=== PATIENT | female | born 1950 | race Caucasian/White ===

== ENCOUNTER → 2016-06-28 | Outpatient (CLI) | payer OTHER ==
[~2016-06-28] MED LIST: ADVAIR 250/501 DISK IH; AMBIEN CR12.5 MG PO; AMLODIPINE BESYL5 MG PO; ANTIVERT25 MG PO; ASPIRIN E.C.81 M1 PO; ASPIRIN E.C.81 MG PO; Aspirin E.C. PO; BACTRIM,SEPT1 TABLET PO; BENICAR20 MG PO; BUTALB-APAP-CA1 EACH PO; CARAFATE1 GM PO; CHANTIX0.5 MG PO; CHOLESTYRAMINE P4 GM PO; CLONAZEPAM0.5 MG PO; CLONAZEPAM1 MG PO; CLOPIDOGREL75 MG PO; COMPAZINE5 MG PO; COUMADIN1 MG PO; COZAAR50 MG PO; Carafate PO; Colace PO; DILAUDID4 MG PO; DUONEB 2.5-0.5 M3 ML AEROSOL; DUONEB 2.5-0.5 M3 ML IH; ENDOCET 5-3251 EACH PO; EXTRA STRENGTH500 M1 PO; FERROUS SULFAT325 MG PO; FLONASE16 G1 BOTH NARES; FLORA-Q CAPSUL1 EACH PO; Flagyl PO; HYDROCHLOROTHIA25 MG PO; HYDROCODON-ACE1 EAC7 PO; HYDROMORPHONE HC2 MG PO; HYDROMORPHONE HC4 MG PO; Habitrol,Nicoderm CQ TD; IBUPROFEN200 M1 PO; IMITREX100 MG PO; IMODIUM MS REL1 EACH PO; IRON325 M1 PO; K-DUR10 ME2 PO; KLONOPIN1 MG PO; LEVAQUIN500 MG PO; LIDOCAINE700 MG TD; LIPITOR20 MG PO; LO-DOSE ASPIRIN81 M1 PO; LOSARTAN POTASS50 MG PO; MECLIZINE HCL25 M3 PO; MECLIZINE HCL25 MG PO; METOCLOPRAMIDE10 MG PO; NEURONTIN300 MG PO; NEURONTIN400 M1 PO; NITROFURANTOIN100 M3 PO; NORCO 7.5/321 TABLET PO; Neurontin PO; PANTOPRAZOLE SO40 MG PO; PLAVIX75 MG PO; POLYETHYLENE GL17 GM PO; PROTONIX40 MG PO; PROVENTIL,200 INHALA IH; Protonix PO; REGLAN10 MG PO; Reglan PO; SEROQUEL XR150 MG PO; SEROQUEL50 MG PO; Symbicort 160-4.5 mc IH; THERAGRAN1 TABLET PO; TOPIRAMATE25 MG PO; TRAMADOL HCL50 MG PO; TREXIMET 85-501 EACH PO; TYLENOL REGULA325 MG PO; Tramadol HCl PO; Tylenol Regular Stre PO; VIBERZI100 MG PO; VICODIN,LORT1 TABLET PO; VIIBRYD40 MG PO; VITAMIN D5000 UNIT PO; Vicodin,Norco 5/325 PO; Vitamin B Complex PO; Vitamin D PO; XANAX0.5 MG PO; Xanax PO; ZESTRIL,PRINIVI20 MG PO; ZITHROMAX Z-PA250 MG PO; ZOFRAN ODT4 MG PO; ZOFRAN8 MG PO; ZOLOFT50 MG PO; ZOLPIDEM TARTRA10 MG PO; Zocor PO
== END | disposition home or self-care (01) ==
LOC: EKG 14:00
DX: Z01.810 Encounter for preprocedural cardiovascular examination (principal); I27.0 Primary pulmonary hypertension
CPT/HCPCS: 93306

== ENCOUNTER 2016-07-28 13:19 | Emergency (ER) | payer OTHER ==
[2016-07-28] VITALS (7 sets, daily range): BP systolic 147–171; BP diastolic 78–109
[~2016-07-28] VITALS: Ht 160 cm; Wt 76.0 kg
[2016-07-28 14:14] LABS: EOSINOPHIL (%) 2.6 % (0-5); EOSINOPHIL COUNT 0.1 K/uL (0-0.3); IMMATURE GRANULOCYTE (%) 0.2 % (0.0-0.7); INSTRUMENT ABS NEUTROPHIL CT 3.2 K/uL; LYMPHOCYTE COUNT 1.3 K/uL (1.0-2.8); MCH 24.7 PG (29.0-34.0); MCHC 29.2 G/DL (30.0-36.0); MCV 84.8 FL (83-99); MEAN PLAT.VOLUME 9.2 uM^3 (9.5-12.4); MONOCYTE COUNT 0.4 K/uL (0-0.8); NEUTROPHIL (%) 64.3 % (45-76); NEUTROPHIL COUNT 3.2 K/uL (1.8-6.4); PLATELET COUNT 357 K/uL (156-360); RBC DIS.WIDTH-CV 16.8 % (11.8-14.6); RBC DIS.WIDTH-SD 52.2 % (39-53); RED BLOOD COUNT 2.83 M/uL (3.80-5.20)
[2016-07-28 14:24] LABS: CHLORIDE 110 mEq/L (99-109); POTASSIUM 3.8 mEq/L (3.7-5.4); SODIUM 144 mEq/L (136-147)
[2016-07-28 14:26] LABS: GLUCOSE 99 mg/dL (70-99)
[2016-07-28 14:27] LABS: ANION GAP 9 MEQ/L (2-14)
[2016-07-28 14:29] LABS: GFR ESTIMATE (CALCULATED) > 59 mL/min/
[2016-07-28 14:30] LABS: UREA NITROGEN (BUN) 14 mg/dL (9-23)
== END 2016-07-28 20:37 ==
LOC: EME 13:19
PROVIDERS: Emergency Medicine
PROC: 30233N1 Transfusion of Nonautologous Red Blood Cells into Peripheral Vein, Percutaneous Approach (ICD-10-PCS; principal; 2016-07-28)
DX: D64.9 Anemia, unspecified (principal); Z98.890 Other specified postprocedural states; J44.9 Chronic obstructive pulmonary disease, unspecified; E78.5 Hyperlipidemia, unspecified; Z86.73 Personal history of transient ischemic attack (TIA), and cerebral infarction without residual deficits; F17.200 Nicotine dependence, unspecified, uncomplicated
CPT/HCPCS: 36415; 80048; 85025 91; 86870; 86900; 86901; 86905; 86920; 86999; 93005; 99281; 99285; J7030; P9016

== ENCOUNTER 2016-09-02 13:11 | Emergency (ER) | payer OTHER ==
[~2016-09-02] VITALS: Ht 160 cm; Wt 81.3 kg
[2016-09-02 15:04] VITALS: BP 124/67
== END 2016-09-02 15:15 | disposition home or self-care (01) ==
LOC: EME → EDBD 13:11 → EME 13:11
DX: K59.00 Constipation, unspecified (principal); S70.01XA Contusion of right hip, initial encounter; X50.9XXA Other and unspecified overexertion or strenuous movements or postures, initial encounter; Y92.003 Bedroom of unspecified non-institutional (private) residence as the place of occurrence of the external cause; J45.909 Unspecified asthma, uncomplicated; J44.9 Chronic obstructive pulmonary disease, unspecified; E78.5 Hyperlipidemia, unspecified; I71.4 Abdominal aortic aneurysm, without rupture; K21.9 Gastro-esophageal reflux disease without esophagitis; Z86.73 Personal history of transient ischemic attack (TIA), and cerebral infarction without residual deficits; Z95.1 Presence of aortocoronary bypass graft; F17.200 Nicotine dependence, unspecified, uncomplicated; Z79.01 Long term (current) use of anticoagulants
CPT/HCPCS: 73502; 74000; 99281; 99283

== ENCOUNTER 2016-12-06 21:57 | Inpatient (IN) | payer OTHER ==
[~2016-12-06] VITALS: Ht 160 cm; Wt 82.8 kg
[~2016-12-06 21:57] MED LIST changes: +QUETIAPINE FUM100 MG PO; -SEROQUEL XR150 MG PO
[2016-12-06 23:20] LABS: INTER. NORMALIZED RATIO 1.1; PROTHROMBIN TIME 11.9 SEC (10.2-12.9)
[2016-12-06 23:22] LABS: CHLORIDE 110 mEq/L (99-109); PTT 25.3 SEC (25-37); SODIUM 141 mEq/L (136-147)
[2016-12-06 23:23] LABS: HEMATOCRIT 37.7 % (36.0-46.0); MCH 21.5 PG (29.0-34.0); MCHC 29.4 G/DL (30.0-36.0); MCV 72.9 FL (83-99); MEAN PLAT.VOLUME 9.2 uM^3 (9.5-12.4); PLATELET COUNT 428 K/uL (156-360); RBC DIS.WIDTH-CV 18.3 % (11.8-14.6); RBC DIS.WIDTH-SD 47.8 % (39-53); RED BLOOD COUNT 5.17 M/uL (3.80-5.20); WHITE BLOOD COUNT 10.4 K/uL (4.1-10.2)
[2016-12-06 23:25] LABS: GLUCOSE 115 mg/dL (70-99)
[2016-12-06 23:26] LABS: ANION GAP 10 MEQ/L (2-14)
[2016-12-06 23:27] LABS: TOTAL BILIRUBIN 0.2 mg/dL (0.0-1.0)
[2016-12-06 23:28] LABS: ALKALINE PHOSPHATASE 199 IU/L (3-129); GFR ESTIMATE (CALCULATED) > 59 mL/min/
[2016-12-06 23:29] LABS: UREA NITROGEN (BUN) 13 mg/dL (9-23)
[2016-12-06 23:32] LABS: CREATINE KINASE 29 IU/L (1-294); LIPASE 5 U/L (1.0-51.0); TOTAL CK 29 IU/L (1-294)
[2016-12-06 23:33] LABS: TROP-I INTERPRETATION NEGATIVE; TROPONIN-I < 0.01 ng/mL (0.0-0.30)
[2016-12-07 01:31] LABS: SERUM ETHYL ALCOHOL < 10 mg/dL
[2016-12-07 01:59] LABS: ADD MIUA? YES; BILIRUBIN NEGATIVE; BLOOD NEGATIVE; COLOR AMBER ((YELLOW)); GLUCOSE (STRIP) NEGATIVE; KETONES NEGATIVE; LEUKOCYTES NEGATIVE; NITRITE NEGATIVE; PROTEIN (STRIP) 30; SPECIFIC GRAVITY 1.023 (1.000-1.030); UROBILINOGEN 0.2 MG/DL (0.2-1.0)
[2016-12-07 02:31] LABS: AMORPHOUS URATES CRYSTALS 1+; BACTERIA 3+ /HPF; CRYSTALS PRESENT; EPITHELIAL CELLS 2+ /HPF; MUCUS 2+ /LPF; RED BLOOD CELLS 0-5 /HPF (0-5); UCUL ADDED? YES; WHITE BLOOD CELLS 0-5 /HPF (0-5)
[2016-12-07 04:45] VITALS: BP 148/90
[2016-12-07 08:35] VITALS: BP 155/81
[2016-12-07] MEDS ORDERED: BUTALBITAL-APA1 EACH PO (12:19)
[2016-12-07] MEDS ORDERED: CLONAZEPAM1 MG PO (12:20)
[2016-12-07 16:18] VITALS: BP 148/70
[2016-12-08] VITALS (7 sets, daily range): BP systolic 131–204; BP diastolic 68–100
[2016-12-09 00:17] VITALS: BP 140/65
[2016-12-09 05:16] VITALS: BP 148/65
[2016-12-09 08:04] VITALS: BP 148/89
[2016-12-09 10:33] LABS: POINT-OF-CARE METER ID UU13113725
[2016-12-09 11:39] VITALS: BP 144/68
[2016-12-09 15:25] LABS: POINT-OF-CARE METER ID UU13113725
[2016-12-09 16:49] VITALS: BP 160/72
[2016-12-10 00:38] VITALS: BP 169/79
[2016-12-10 04:57] VITALS: BP 153/68
[2016-12-10 07:03] LABS: POINT-OF-CARE METER ID UU13113725
[2016-12-10 07:19] LABS: HEMATOCRIT 30.5 % (36.0-46.0); MCH 22.5 PG (29.0-34.0); MCHC 30.8 G/DL (30.0-36.0); RBC DIS.WIDTH-CV 18.5 % (11.8-14.6); RBC DIS.WIDTH-SD 48.7 % (39-53); RED BLOOD COUNT 4.18 M/uL (3.80-5.20); WHITE BLOOD COUNT 4.8 K/uL (4.1-10.2)
[2016-12-10 07:20] LABS: ANION GAP 8 MEQ/L (2-14); CHLORIDE 109 MEQ/L (99-109); POTASSIUM 3.1 MEQ/L (3.7-5.4); SAMPLE HEMOLYSIS CHECK 0; SAMPLE ICTERIC CHECK 0; SAMPLE LIPEMIA CHECK 0; SODIUM 140 MEQ/L (136-147)
[2016-12-10 07:26] LABS: GFR ESTIMATE (CALCULATED) > 59 mL/min/; GLUCOSE 102 mg/dL (70-99); UREA NITROGEN (BUN) 8 mg/dL (9-23)
[2016-12-10 07:51] LABS: MEAN PLAT.VOLUME 9.9 uM^3 (9.5-12.4); PLAT.SUFFICIENCY ADEQUATE
[2016-12-10 08:08] LABS: PLATELET COUNT 201 K/uL (156-360)
[2016-12-10 08:17] VITALS: BP 176/97
[2016-12-10 10:31] VITALS: BP 170/94
[2016-12-10 11:41] LABS: POINT-OF-CARE METER ID UU13113725
[2016-12-10] MEDS ORDERED: CIPROFLOXACIN500 M1 PO (13:17)
[2016-12-10] MEDS ORDERED: FERROUS SULFAT325 MG PO (13:19)
[2016-12-10] MEDS ORDERED: APRESOLINE25 MG PO (13:19)
[2016-12-10 16:21] VITALS: BP 180/90
[2016-12-10 16:48] LABS: POINT-OF-CARE METER ID UU13113725
[2016-12-10 20:40] VITALS: BP 148/68
[2016-12-11 00:16] VITALS: BP 139/69
[2016-12-11 00:47] VITALS: BP 172/86
[2016-12-11 08:07] VITALS: BP 169/80
[2016-12-11] MEDS ORDERED: DUONEB 2.5-0.5 M3 ML AEROSOL (15:30)
[2016-12-11] MEDS ORDERED: APRESOLINE25 MG PO (15:31)
[2016-12-11] MEDS ORDERED: KLOR-CON M1010 MEQ PO (15:35)
[2016-12-11 16:25] LABS: POC NON-PRINT COM 1 ND
[2016-12-11 16:45] VITALS: BP 118/66
== END 2016-12-11 18:50 | disposition home health service (06) | DRG 689 ==
LOC: EME 21:57 → 5EAST 12-07 03:10 → EDOF 12-07 03:10 → 5EAST 12-07 03:10 → ENRESERV 12-07 03:17 → 5EAST 12-07 04:30
PROVIDERS: Emergency Medicine; Family Medicine; Internal Medicine
DX: N39.0 Urinary tract infection, site not specified (principal); E86.0 Dehydration; G93.40 Encephalopathy, unspecified; I11.0 Hypertensive heart disease with heart failure; I50.9 Heart failure, unspecified; J44.9 Chronic obstructive pulmonary disease, unspecified; R62.7 Adult failure to thrive; I95.9 Hypotension, unspecified; S00.93XA Contusion of unspecified part of head, initial encounter; W01.0XXA Fall on same level from slipping, tripping and stumbling without subsequent striking against object, initial encounter; Y92.009 Unspecified place in unspecified non-institutional (private) residence as the place of occurrence of the external cause; E78.5 Hyperlipidemia, unspecified; K21.9 Gastro-esophageal reflux disease without esophagitis; D64.9 Anemia, unspecified; G43.909 Migraine, unspecified, not intractable, without status migrainosus; I25.10 Atherosclerotic heart disease of native coronary artery without angina pectoris; K29.70 Gastritis, unspecified, without bleeding; K58.0 Irritable bowel syndrome with diarrhea; R15.9 Full incontinence of feces; R63.4 Abnormal weight loss; M25.552 Pain in left hip; M25.551 Pain in right hip; R07.1 Chest pain on breathing; M81.0 Age-related osteoporosis without current pathological fracture; F17.210 Nicotine dependence, cigarettes, uncomplicated; R32 Unspecified urinary incontinence; F32.9 Major depressive disorder, single episode, unspecified; F41.9 Anxiety disorder, unspecified; Z86.73 Personal history of transient ischemic attack (TIA), and cerebral infarction without residual deficits; Z82.3 Family history of stroke; Z95.1 Presence of aortocoronary bypass graft
CPT/HCPCS: 70450; 71020; 72125; 72170; 78582; 80048; 80053; 81003; 82140; 82272; 82550; 82553; 82948; 83605; 83690; 84132 91; 84484; 85027; 85610; 85730; 87040; 87077; 87086; 87186; 87801; 93005; 94640; 94640 76; 99202; 99281; 99285; A9540; A9567; G0480; J0696; J0744; J1644; J7030; J7050

== ENCOUNTER 2017-03-13 21:04 | Inpatient (IN) | payer OTHER ==
[~2017-03-13] VITALS: Ht 160 cm; Wt 83.5 kg
[~2017-03-13 21:04] MED LIST changes: +APRESOLINE25 MG PO; +BUTALBITAL-APA1 EACH PO; +CIPROFLOXACIN500 M1 PO; +KLOR-CON M1010 MEQ PO
[2017-03-13 22:49] LABS: APPEARANCE CLOUDY ((CLEAR)); BILIRUBIN NEGATIVE; BLOOD SMALL; COLOR AMBER ((YELLOW)); GLUCOSE (STRIP) NEGATIVE; KETONES 20; LEUKOCYTES NEGATIVE; NITRITE POSITIVE; PROTEIN (STRIP) 30; SPECIFIC GRAVITY 1.019 (1.000-1.030); UROBILINOGEN 0.2 MG/DL (0.2-1.0)
[2017-03-13 22:51] LABS: CHLORIDE 101 mEq/L (99-109); POTASSIUM 3.8 mEq/L (3.7-5.4); SODIUM 137 mEq/L (136-147)
[2017-03-13 22:52] LABS: BASOPHIL (%) 0.3 % (0-1); EOSINOPHIL (%) 0.5 % (0-5); HEMATOCRIT 42.5 % (36.0-46.0); HEMOGLOBIN 12.6 G/DL (11.9-15.5); IMMATURE GRANULOCYTE (%) 0.8 % (0.0-0.7); LYMPHOCYTE (%) 15.3 % (15-42); LYMPHOCYTE COUNT 0.6 K/uL (1.0-2.8); MCH 24.6 PG (29.0-34.0); MCHC 29.6 G/DL (30.0-36.0); MCV 82.8 FL (83-99); MONOCYTE (%) 10.9 % (3-12); MONOCYTE COUNT 0.4 K/uL (0-0.8); NEUTROPHIL (%) 72.2 % (45-76); NEUTROPHIL COUNT 2.7 K/uL (1.8-6.4); PLATELET COUNT 206 K/uL (156-360); RBC DIS.WIDTH-SD 60.8 % (39-53); RED BLOOD COUNT 5.13 M/uL (3.80-5.20); WHITE BLOOD COUNT 3.7 K/uL (4.1-10.2)
[2017-03-13 22:53] LABS: GLUCOSE 84 mg/dL (70-99)
[2017-03-13 22:57] LABS: CREATININE 1.2 mg/dL (0.6-1.3); GFR ESTIMATE (CALCULATED) 48 mL/min/
[2017-03-13 22:58] LABS: UREA NITROGEN (BUN) 15 mg/dL (9-23)
[2017-03-13 23:04] LABS: TROP-I INTERPRETATION NEGATIVE; TROPONIN-I 0.01 ng/mL (0.0-0.30)
[2017-03-13 23:07] LABS: BACTERIA 3+ /HPF; EPITHELIAL CELLS 1+ /HPF; MUCUS 1+ /LPF; RED BLOOD CELLS 0-5 /HPF (0-5); UCUL ADDED? YES; WHITE BLOOD CELLS 0-5 /HPF (0-5)
[2017-03-14 01:33] LABS: AMPHETAMINE NEGATIVE (500 ng/mL); BARBITURATES PRESUMPTIVE POSITIVE (200 ng/mL); BENZODIAZEPINES PRESUMPTIVE POSITIVE (150 ng/mL); BUPRENORPHINE NEGATIVE (10 ng/mL); COCAINE NEGATIVE (150 ng/mL); METHADONE NEGATIVE (200 ng/mL); METHAMPHETAMINE NEGATIVE (500 ng/mL); OPIATES (MORPHINE) NEGATIVE (100 ng/mL); OXYCODONE NEGATIVE (100 ng/mL); PHENCYCLIDINE NEGATIVE (25 ng/mL); PROPOXYPHENE NEGATIVE (300 ng/mL); THC CANNABINOIDS NEGATIVE (50 ng/mL); TRICYCLIC ANTIDEPRESSANTS NEGATIVE (300 ng/mL)
[2017-03-14 02:58] LABS: BENZODIAZEPINES, URINE SCREEN Negative (200 ng/mL)
[2017-03-14 04:04] VITALS: BP 142/76
[2017-03-14 06:56] LABS: CHLORIDE 104 MEQ/L (99-109); POTASSIUM 4.1 MEQ/L (3.7-5.4); SODIUM 140 MEQ/L (136-147)
[2017-03-14 07:01] LABS: CREATININE 0.9 MG/DL (0.6-1.3); GFR ESTIMATE (CALCULATED) > 59 mL/min/; GLUCOSE 67 mg/dL (70-99); UREA NITROGEN (BUN) 16 mg/dL (9-23)
[2017-03-14 07:10] LABS: HEMATOCRIT 42.4 % (36.0-46.0); HEMOGLOBIN 12.4 G/DL (11.9-15.5); MCH 24.7 PG (29.0-34.0); MCHC 29.2 G/DL (30.0-36.0); MCV 84.3 FL (83-99); PLATELET COUNT 196 K/uL (156-360); RBC DIS.WIDTH-CV 20.4 % (11.8-14.6); RBC DIS.WIDTH-SD 62.4 % (39-53); RED BLOOD COUNT 5.03 M/uL (3.80-5.20); WHITE BLOOD COUNT 3.4 K/uL (4.1-10.2)
[2017-03-14 08:18] VITALS: BP 148/70
[2017-03-14 09:35] LABS: TROP-I INTERPRETATION NEGATIVE; TROPONIN-I < 0.01 ng/mL (0.0-0.30)
[2017-03-14 11:17] VITALS: BP 163/77
[2017-03-14 14:27] LABS: TROP-I INTERPRETATION NEGATIVE; TROPONIN-I < 0.01 ng/mL (0.0-0.30)
[2017-03-14 15:45] VITALS: BP 167/65
[2017-03-14] MEDS ORDERED: ADVAIR 250/501 DISK IH (15:48)
[2017-03-14] MEDS ORDERED: QUETIAPINE FUM100 MG PO (15:50)
[2017-03-14] MEDS ORDERED: VIIBRYD40 MG PO (15:51)
[2017-03-14] MEDS ORDERED: VIBERZI100 MG PO (15:51)
[2017-03-14] MEDS ORDERED: PROTONIX40 MG PO (15:53)
[2017-03-14] MEDS ORDERED: ANTIVERT25 MG PO (15:54)
[2017-03-14] MEDS ORDERED: ZEBUTAL 50-3251 EACH PO (15:55)
[2017-03-14] MEDS ORDERED: CLONAZEPAM1 MG PO (15:58)
[2017-03-14] MEDS ORDERED: BUTALB-ASPIRIN1 EACH PO (15:58)
[2017-03-14] MEDS ORDERED: FERRETTS325 MG PO (15:59)
[2017-03-14] MEDS ORDERED: KLOR-CON M1010 MEQ PO (16:00)
[2017-03-14] MEDS ORDERED: APRESOLINE25 MG PO (16:02)
[2017-03-14] MEDS ORDERED: COZAAR50 MG PO (16:38)
[2017-03-14 19:29] VITALS: BP 156/74
[2017-03-14 22:17] LABS: TROP-I INTERPRETATION NEGATIVE; TROPONIN-I < 0.01 ng/mL (0.0-0.30)
[2017-03-15 00:10] VITALS: BP 167/77
[2017-03-15 04:35] VITALS: BP 128/60
[2017-03-15 06:14] LABS: TROP-I INTERPRETATION NEGATIVE; TROPONIN-I < 0.01 ng/mL (0.0-0.30)
[2017-03-15 08:00] VITALS: BP 98/55
[2017-03-15 11:43] VITALS: BP 124/62
[2017-03-15 16:30] VITALS: BP 175/84
[2017-03-15 19:48] VITALS: BP 149/83
[2017-03-16 03:37] VITALS: BP 153/80
[2017-03-16 06:32] LABS: HEMATOCRIT 36.6 % (36.0-46.0); HEMOGLOBIN 10.9 G/DL (11.9-15.5); MCH 24.4 PG (29.0-34.0); MCHC 29.8 G/DL (30.0-36.0); MCV 81.9 FL (83-99); PLATELET COUNT 217 K/uL (156-360); RBC DIS.WIDTH-CV 19.8 % (11.8-14.6); RBC DIS.WIDTH-SD 59.2 % (39-53); RED BLOOD COUNT 4.47 M/uL (3.80-5.20); WHITE BLOOD COUNT 3.6 K/uL (4.1-10.2)
[2017-03-16 06:52] LABS: CHLORIDE 106 MEQ/L (99-109); CREATININE 0.7 MG/DL (0.6-1.3); GFR ESTIMATE (CALCULATED) > 59 mL/min/; SODIUM 141 MEQ/L (136-147); UREA NITROGEN (BUN) 8 mg/dL (9-23)
[2017-03-16 07:00] LABS: GLUCOSE 149 mg/dL (70-99)
[2017-03-16 07:31] VITALS: BP 110/60
[2017-03-16 16:33] VITALS: BP 131/64
[2017-03-16 19:18] VITALS: BP 161/79
[2017-03-16 22:48] VITALS: BP 122/62
[2017-03-17 03:40] VITALS: BP 183/86
[2017-03-17 06:06] LABS: HEMATOCRIT 35.7 % (36.0-46.0); HEMOGLOBIN 10.6 G/DL (11.9-15.5); MCHC 29.7 G/DL (30.0-36.0); MCV 80.8 FL (83-99); PLATELET COUNT 228 K/uL (156-360); RBC DIS.WIDTH-CV 19.9 % (11.8-14.6); RBC DIS.WIDTH-SD 58.5 % (39-53); RED BLOOD COUNT 4.42 M/uL (3.80-5.20); WHITE BLOOD COUNT 4.2 K/uL (4.1-10.2)
[2017-03-17 06:41] LABS: CHLORIDE 106 MEQ/L (99-109); CREATININE 0.6 MG/DL (0.6-1.3); GFR ESTIMATE (CALCULATED) > 59 mL/min/; POTASSIUM 3.6 MEQ/L (3.7-5.4); SODIUM 140 MEQ/L (136-147); UREA NITROGEN (BUN) 11 mg/dL (9-23)
[2017-03-17 06:56] LABS: GLUCOSE 85 mg/dL (70-99)
[2017-03-17 07:25] VITALS: BP 177/83
[2017-03-17 10:31] VITALS: BP 147/82
[2017-03-17] MEDS ORDERED: BUSPAR5 MG PO (10:58)
[2017-03-17] MEDS ORDERED: QUETIAPINE FUM100 MG PO (10:58)
[2017-03-17] MEDS ORDERED: METOCLOPRAMIDE10 MG PO (10:59)
[2017-03-17] MEDS ORDERED: CEFTIN500 MG PO (11:03)
[2017-03-17] MEDS ORDERED: HYDROMORPHONE HC2 MG PO (11:04)
[2017-03-17] MEDS ORDERED: CLONAZEPAM1 MG PO (11:04)
[2017-03-17 16:00] VITALS: BP 157/75
[2017-03-17 16:05] VITALS: BP 157/75
[2017-03-17 22:33] VITALS: BP 168/85
[2017-03-18 09:08] VITALS: BP 143/81
[2017-03-18 16:51] VITALS: BP 150/85
[2017-03-19 01:00] VITALS: BP 155/89
[2017-03-19 07:45] VITALS: BP 166/85
[2017-03-19 15:55] VITALS: BP 166/79
[2017-03-20 00:31] VITALS: BP 138/66
[2017-03-20 07:19] VITALS: BP 153/72
[2017-03-20 15:54] VITALS: BP 171/79
[2017-03-20 19:48] VITALS: BP 166/86
[2017-03-20 20:14] VITALS: BP 166/84
[2017-03-20 23:55] VITALS: BP 90/52
[2017-03-21 04:21] VITALS: BP 189/79
[2017-03-21 05:54] VITALS: BP 162/74
[2017-03-21 07:23] VITALS: BP 172/68
[2017-03-21 13:05] LABS: C DIFF TOXIN NEGATIVE (NEGATIVE)
[2017-03-21 16:00] VITALS: BP 188/103
== END 2017-03-21 17:35 | disposition home or self-care (01) | DRG 190 ==
LOC: EME → DELPENDDIS → EME 21:04 → EDBD 21:04 → EDOF 03-14 01:00 → 5EAST 03-14 01:00 → ENRESERV 03-14 01:19 → 5EAST 03-14 02:51 → ENPENDDIS 03-17 → 5EAST 03-21 17:35
PROVIDERS: Emergency Medicine; Family Medicine
DX: J44.1 Chronic obstructive pulmonary disease with (acute) exacerbation (principal); N39.0 Urinary tract infection, site not specified; J18.9 Pneumonia, unspecified organism; I10 Essential (primary) hypertension; R09.02 Hypoxemia; J44.0 Chronic obstructive pulmonary disease with (acute) lower respiratory infection; K58.9 Irritable bowel syndrome, unspecified; K21.9 Gastro-esophageal reflux disease without esophagitis; I50.9 Heart failure, unspecified; G89.4 Chronic pain syndrome; M19.90 Unspecified osteoarthritis, unspecified site; E86.0 Dehydration; F17.210 Nicotine dependence, cigarettes, uncomplicated; K63.89 Other specified diseases of intestine; E87.6 Hypokalemia; I73.9 Peripheral vascular disease, unspecified; E66.9 Obesity, unspecified; I71.4 Abdominal aortic aneurysm, without rupture; F33.9 Major depressive disorder, recurrent, unspecified; R07.89 Other chest pain; E78.5 Hyperlipidemia, unspecified; F41.9 Anxiety disorder, unspecified; K52.9 Noninfective gastroenteritis and colitis, unspecified; K29.70 Gastritis, unspecified, without bleeding; D64.9 Anemia, unspecified; Z82.3 Family history of stroke; Q43.8 Other specified congenital malformations of intestine; Z86.73 Personal history of transient ischemic attack (TIA), and cerebral infarction without residual deficits; Z90.710 Acquired absence of both cervix and uterus; Z68.32 Body mass index [BMI] 32.0-32.9, adult; Z95.1 Presence of aortocoronary bypass graft
CPT/HCPCS: 70450; 71010; 71020; 71250; 74176; 80048; 81003; 82948; 83605; 84484; 84999; 85025; 85027; 87040; 87077; 87086; 87186; 87493; 93005; 94640; 94640 76; 94799; 99202; 99281; 99284; J0360; J0696; J7512

== ENCOUNTER 2017-03-27 10:51 | Emergency (ER) | payer OTHER ==
[~2017-03-27] VITALS: Ht 160 cm; Wt 76.0 kg
[~2017-03-27 10:51] MED LIST changes: +BUSPAR5 MG PO; +BUTALB-ASPIRIN1 EACH PO; +CEFTIN500 MG PO; +FERRETTS325 MG PO; +ZEBUTAL 50-3251 EACH PO
[2017-03-27 12:10] LABS: BASOPHIL (%) 0.2 % (0-1); EOSINOPHIL (%) 1.2 % (0-5); EOSINOPHIL COUNT 0.1 K/uL (0-0.3); HEMATOCRIT 36.5 % (36.0-46.0); HEMOGLOBIN 10.9 G/DL (11.9-15.5); IMMATURE GRANULOCYTE (%) 0.7 % (0.0-0.7); LYMPHOCYTE (%) 10.8 % (15-42); LYMPHOCYTE COUNT 0.9 K/uL (1.0-2.8); MCH 24.5 PG (29.0-34.0); MCHC 29.9 G/DL (30.0-36.0); MONOCYTE (%) 6.7 % (3-12); MONOCYTE COUNT 0.6 K/uL (0-0.8); NEUTROPHIL (%) 80.4 % (45-76); NEUTROPHIL COUNT 6.8 K/uL (1.8-6.4); RBC DIS.WIDTH-CV 18.6 % (11.8-14.6); RBC DIS.WIDTH-SD 55.8 % (39-53); RED BLOOD COUNT 4.45 M/uL (3.80-5.20); WHITE BLOOD COUNT 8.4 K/uL (4.1-10.2)
[2017-03-27 12:12] LABS: PLATELET COUNT 416 K/uL (156-360)
[2017-03-27 12:19] LABS: ALBUMIN 3.6 g/dL (3.2-4.8); CHLORIDE 102 mEq/L (99-109); SODIUM 139 mEq/L (136-147)
[2017-03-27 12:21] LABS: GLUCOSE 104 mg/dL (70-99)
[2017-03-27 12:22] LABS: TOTAL PROTEIN 7.2 g/dL (6.4-8.3)
[2017-03-27 12:23] LABS: TOTAL BILIRUBIN 0.2 mg/dL (0.0-1.0)
[2017-03-27 12:25] LABS: ALKALINE PHOSPHATASE 211 IU/L (3-129); CREATININE 0.9 mg/dL (0.6-1.3); GFR ESTIMATE (CALCULATED) > 59 mL/min/
[2017-03-27 12:26] LABS: UREA NITROGEN (BUN) 10 mg/dL (9-23)
[2017-03-27 12:27] LABS: AST (GOT) 13 IU/L (2-34)
[2017-03-27 12:28] LABS: ALT (GPT) 30 IU/L (3-49); CREATINE KINASE 98 IU/L (1-294); TOTAL CK 98 IU/L (1-294)
[2017-03-27 12:31] LABS: TROP-I INTERPRETATION NEGATIVE; TROPONIN-I < 0.01 ng/mL (0.0-0.30)
[2017-03-27 12:34] LABS: CK-MB 0.9 ng/mL (0.0-4.9); CKMB RELATIVE INDEX 0.9 (0.0-3.9)
[2017-03-27 15:32] LABS: APPEARANCE CLEAR ((CLEAR)); BILIRUBIN NEGATIVE; BLOOD NEGATIVE; COLOR YELLOW ((YELLOW)); GLUCOSE (STRIP) NEGATIVE; KETONES NEGATIVE; LEUKOCYTES NEGATIVE; NITRITE NEGATIVE; PROTEIN (STRIP) NEGATIVE; SPECIFIC GRAVITY 1.017 (1.000-1.030); UCUL ADDED? NO; UROBILINOGEN 0.2 MG/DL (0.2-1.0)
[2017-03-27] MEDS ORDERED: VENTOLIN HFA18 GM IH (16:07)
[2017-03-27 16:43] VITALS: BP 193/110
== END 2017-03-27 16:43 | disposition home or self-care (01) ==
LOC: EME 10:51
PROVIDERS: Emergency Medicine
DX: S42.251A Displaced fracture of greater tuberosity of right humerus, initial encounter for closed fracture (principal); S00.83XA Contusion of other part of head, initial encounter; M25.521 Pain in right elbow; W01.0XXA Fall on same level from slipping, tripping and stumbling without subsequent striking against object, initial encounter; Y93.01 Activity, walking, marching and hiking; J44.1 Chronic obstructive pulmonary disease with (acute) exacerbation; R53.1 Weakness; Z99.81 Dependence on supplemental oxygen; I10 Essential (primary) hypertension; Z86.73 Personal history of transient ischemic attack (TIA), and cerebral infarction without residual deficits; Z95.1 Presence of aortocoronary bypass graft; F17.200 Nicotine dependence, unspecified, uncomplicated
CPT/HCPCS: 70450; 71045; 73030; 73080; 80053; 81003; 82550; 82553; 83605; 83735; 84484; 85025; 87040; 94640; 99281; 99285; J7030

== ENCOUNTER 2017-04-06 14:08 | Emergency (ER) | payer OTHER ==
[~2017-04-06] VITALS: Ht 160 cm; Wt 72.7 kg
[~2017-04-06 14:08] MED LIST changes: +VENTOLIN HFA18 GM IH
[2017-04-06 15:22] LABS: HEMATOCRIT 36.4 % (36.0-46.0); MCH 24.8 PG (29.0-34.0); MCHC 30.2 G/DL (30.0-36.0); PLATELET COUNT 302 K/uL (156-360); RBC DIS.WIDTH-CV 17.5 % (11.8-14.6); RBC DIS.WIDTH-SD 52.5 % (39-53); RED BLOOD COUNT 4.44 M/uL (3.80-5.20); WHITE BLOOD COUNT 5.7 K/uL (4.1-10.2)
[2017-04-06 15:49] LABS: CHLORIDE 108 mEq/L (99-109); POTASSIUM 4.7 mEq/L (3.7-5.4); SODIUM 138 mEq/L (136-147)
[2017-04-06 15:50] LABS: GLUCOSE 95 mg/dL (70-99)
[2017-04-06 15:54] LABS: CREATININE 0.9 mg/dL (0.6-1.3); GFR ESTIMATE (CALCULATED) > 59 mL/min/
[2017-04-06 15:55] LABS: UREA NITROGEN (BUN) 16 mg/dL (9-23)
[2017-04-06] MEDS ORDERED: ULTRAM50 MG PO (17:01)
[2017-04-06 18:29] VITALS: BP 138/83
== END 2017-04-06 18:32 ==
LOC: EME 14:08
PROVIDERS: Emergency Medicine
DX: S92.512A Displaced fracture of proximal phalanx of left lesser toe(s), initial encounter for closed fracture (principal); W22.8XXA Striking against or struck by other objects, initial encounter; J44.9 Chronic obstructive pulmonary disease, unspecified; E78.5 Hyperlipidemia, unspecified; I50.9 Heart failure, unspecified; Z99.81 Dependence on supplemental oxygen; Z86.73 Personal history of transient ischemic attack (TIA), and cerebral infarction without residual deficits; F17.200 Nicotine dependence, unspecified, uncomplicated; F32.9 Major depressive disorder, single episode, unspecified; K21.9 Gastro-esophageal reflux disease without esophagitis; F41.9 Anxiety disorder, unspecified; Z95.1 Presence of aortocoronary bypass graft; Z90.10 Acquired absence of unspecified breast and nipple; Z88.8 Allergy status to other drugs, medicaments and biological substances; Z86.79 Personal history of other diseases of the circulatory system
CPT/HCPCS: 73630; 80048; 81003; 85027; 99281; 99284

== ENCOUNTER 2017-06-22 18:56 | Emergency (ER) | payer OTHER ==
[~2017-06-22] VITALS: Ht 172.7 cm; Wt 86.1 kg
[~2017-06-22 18:56] MED LIST changes: +ULTRAM50 MG PO
[2017-06-22 19:52] LABS: HEMOGLOBIN 11.1 G/DL (11.9-15.5); MCH 26.6 PG (29.0-34.0); MCHC 30.8 G/DL (30.0-36.0); MCV 86.1 FL (83-99); PLATELET COUNT 319 K/uL (156-360); RBC DIS.WIDTH-CV 16.7 % (11.8-14.6); RBC DIS.WIDTH-SD 52.7 % (39-53); RED BLOOD COUNT 4.18 M/uL (3.80-5.20)
[2017-06-22 20:00] LABS: ALBUMIN 3.7 g/dL (3.2-4.8)
[2017-06-22 20:01] LABS: CHLORIDE 103 mEq/L (99-109); POTASSIUM 3.6 mEq/L (3.7-5.4); SODIUM 142 mEq/L (136-147)
[2017-06-22 20:03] LABS: GLUCOSE 96 mg/dL (70-99)
[2017-06-22 20:05] LABS: TOTAL BILIRUBIN 0.3 mg/dL (0.0-1.0)
[2017-06-22 20:06] LABS: ALKALINE PHOSPHATASE 193 IU/L (3-129)
[2017-06-22 20:07] LABS: CREATININE 0.9 mg/dL (0.6-1.3); GFR ESTIMATE (CALCULATED) > 59 mL/min/
[2017-06-22 20:08] LABS: AST (GOT) 12 IU/L (2-34); UREA NITROGEN (BUN) 14 mg/dL (9-23)
[2017-06-22 20:09] LABS: ALT (GPT) 16 IU/L (3-49)
[2017-06-22 21:12] VITALS: BP 189/91
== END 2017-06-22 21:13 | disposition home or self-care (01) ==
LOC: EME → EDBD 18:56 → EME 21:13
PROVIDERS: Emergency Medicine
DX: F41.9 Anxiety disorder, unspecified (principal); I11.0 Hypertensive heart disease with heart failure; I50.9 Heart failure, unspecified; K21.9 Gastro-esophageal reflux disease without esophagitis; J44.9 Chronic obstructive pulmonary disease, unspecified; E78.5 Hyperlipidemia, unspecified; F32.9 Major depressive disorder, single episode, unspecified; F17.200 Nicotine dependence, unspecified, uncomplicated; Z86.73 Personal history of transient ischemic attack (TIA), and cerebral infarction without residual deficits; Z86.79 Personal history of other diseases of the circulatory system; Z95.1 Presence of aortocoronary bypass graft; Z90.49 Acquired absence of other specified parts of digestive tract; Z88.6 Allergy status to analgesic agent; Z88.5 Allergy status to narcotic agent; Z91.041 Radiographic dye allergy status; Z88.8 Allergy status to other drugs, medicaments and biological substances
CPT/HCPCS: 80053; 85027; 93005; 99281; 99283

== ENCOUNTER 2017-07-26 10:50 | Emergency (ER) | payer OTHER ==
[~2017-07-26] VITALS: Ht 160 cm; Wt 87.0 kg
[2017-07-26 11:16] LABS: BASOPHIL (%) 0.4 % (0-1); EOSINOPHIL (%) 0.9 % (0-5); EOSINOPHIL COUNT 0.1 K/uL (0-0.3); HEMATOCRIT 34.7 % (36.0-46.0); HEMOGLOBIN 10.9 G/DL (11.9-15.5); IMMATURE GRANULOCYTE (%) 0.6 % (0.0-0.7); LYMPHOCYTE (%) 10.7 % (15-42); LYMPHOCYTE COUNT 1.1 K/uL (1.0-2.8); MCH 26.6 PG (29.0-34.0); MCHC 31.4 G/DL (30.0-36.0); MCV 84.6 FL (83-99); MONOCYTE (%) 5.1 % (3-12); MONOCYTE COUNT 0.5 K/uL (0-0.8); NEUTROPHIL (%) 82.3 % (45-76); NEUTROPHIL COUNT 8.4 K/uL (1.8-6.4); PLATELET COUNT 374 K/uL (156-360); RBC DIS.WIDTH-CV 15.9 % (11.8-14.6); RBC DIS.WIDTH-SD 49.3 % (39-53); WHITE BLOOD COUNT 10.2 K/uL (4.1-10.2)
[2017-07-26 11:24] LABS: ALBUMIN 3.8 g/dL (3.2-4.8); INTER. NORMALIZED RATIO 0.9
[2017-07-26 11:25] LABS: CHLORIDE 107 mEq/L (99-109); SODIUM 139 mEq/L (136-147)
[2017-07-26 11:27] LABS: GLUCOSE 119 mg/dL (70-99); PTT 26.1 SEC (25-37); TOTAL PROTEIN 6.8 g/dL (6.4-8.3)
[2017-07-26 11:29] LABS: TOTAL BILIRUBIN 0.1 mg/dL (0.0-1.0)
[2017-07-26 11:30] LABS: ALKALINE PHOSPHATASE 138 IU/L (3-129)
[2017-07-26 11:31] LABS: CREATININE 1.2 mg/dL (0.6-1.3); GFR ESTIMATE (CALCULATED) 48 mL/min/
[2017-07-26 11:32] LABS: AST (GOT) 10 IU/L (2-34); UREA NITROGEN (BUN) 19 mg/dL (9-23)
[2017-07-26 11:34] LABS: ALT (GPT) 8 IU/L (3-49); LIPASE 16 U/L (1.0-51.0)
[2017-07-26 11:36] LABS: TROP-I INTERPRETATION NEGATIVE; TROPONIN-I < 0.01 ng/mL (0.0-0.30)
[2017-07-26 14:17] LABS: TROP-I INTERPRETATION NEGATIVE; TROPONIN-I < 0.01 ng/mL (0.0-0.30)
[2017-07-26 15:03] VITALS: BP 156/77
== END 2017-07-26 15:06 | disposition home or self-care (01) ==
LOC: EME 10:50
PROVIDERS: Emergency Medicine
DX: R07.89 Other chest pain (principal); R10.13 Epigastric pain; Z86.79 Personal history of other diseases of the circulatory system; J44.9 Chronic obstructive pulmonary disease, unspecified; E78.5 Hyperlipidemia, unspecified; Z86.73 Personal history of transient ischemic attack (TIA), and cerebral infarction without residual deficits; I50.9 Heart failure, unspecified; F17.200 Nicotine dependence, unspecified, uncomplicated; K21.9 Gastro-esophageal reflux disease without esophagitis; F32.9 Major depressive disorder, single episode, unspecified; F41.9 Anxiety disorder, unspecified; Z95.1 Presence of aortocoronary bypass graft
CPT/HCPCS: 71045; 71275; 74177; 80053; 82948; 83690; 84484; 85025; 85610; 85730; 93005; 99281; 99285; J1200; J2405; J2930; J3010; J7030

== ENCOUNTER 2017-08-09 04:08 | Inpatient (IN) | payer OTHER ==
[~2017-08-09] VITALS: Ht 160 cm; Wt 83.0 kg
[2017-08-09 05:02] LABS: HEMATOCRIT 36.8 % (36.0-46.0); HEMOGLOBIN 11.5 G/DL (11.9-15.5); MCH 26.1 PG (29.0-34.0); MCHC 31.3 G/DL (30.0-36.0); MCV 83.6 FL (83-99); RBC DIS.WIDTH-CV 15.5 % (11.8-14.6); RBC DIS.WIDTH-SD 47.1 % (39-53)
[2017-08-09 05:04] LABS: PLATELET COUNT 502 K/uL (156-360)
[2017-08-09 05:12] LABS: ALBUMIN 4.1 g/dL (3.2-4.8); CHLORIDE 103 mEq/L (99-109); POTASSIUM 4.6 mEq/L (3.7-5.4); SODIUM 140 mEq/L (136-147)
[2017-08-09 05:14] LABS: GLUCOSE 113 mg/dL (70-99)
[2017-08-09 05:16] LABS: TOTAL BILIRUBIN 0.3 mg/dL (0.0-1.0)
[2017-08-09 05:18] LABS: ALKALINE PHOSPHATASE 130 IU/L (3-129); CREATININE 1.2 mg/dL (0.6-1.3); GFR ESTIMATE (CALCULATED) 48 mL/min/
[2017-08-09 05:19] LABS: UREA NITROGEN (BUN) 16 mg/dL (9-23)
[2017-08-09 05:20] LABS: AST (GOT) 13 IU/L (2-34)
[2017-08-09 05:21] LABS: ALT (GPT) 12 IU/L (3-49); LIPASE 41 U/L (1.0-51.0)
[2017-08-09 05:27] LABS: TROP-I INTERPRETATION NEGATIVE; TROPONIN-I < 0.01 ng/mL (0.0-0.30)
[2017-08-09 05:39] LABS: PTT 24.1 SEC (25-37)
[2017-08-09 08:05] VITALS: BP 145/69
[2017-08-09 08:22] LABS: CREATINE KINASE 39 IU/L (1-294); TOTAL CK 39 IU/L (1-294)
[2017-08-09 08:25] VITALS: BP 145/75
[2017-08-09 08:26] LABS: CK-MB 1.2 ng/mL (0.0-4.9); CKMB RELATIVE INDEX 3.1 (0.0-3.9)
[2017-08-09] MEDS ORDERED: LISINOPRIL20 MG PO (09:36)
[2017-08-09 11:24] VITALS: BP 175/83
[2017-08-09 15:21] VITALS: BP 130/58
[2017-08-09 16:32] LABS: TROP-I INTERPRETATION NEGATIVE; TROPONIN-I < 0.01 ng/mL (0.0-0.30)
[2017-08-09 19:51] VITALS: BP 143/64
[2017-08-10 00:12] VITALS: BP 147/83
[2017-08-10 03:53] VITALS: BP 146/83
[2017-08-10 06:13] LABS: TROP-I INTERPRETATION NEGATIVE; TROPONIN-I 0.02 ng/mL (0.0-0.30)
[2017-08-10 06:14] LABS: CREATINE KINASE 32 IU/L (1-294); TOTAL CK 32 IU/L (1-294)
[2017-08-10 07:21] VITALS: BP 122/60
[2017-08-10 07:34] LABS: CK-MB 1.3 ng/mL (0.0-4.9)
[2017-08-10 07:47] LABS: CKMB RELATIVE INDEX 4.1 (0.0-3.9)
[2017-08-10 11:49] VITALS: BP 127/76
[2017-08-10 15:14] VITALS: BP 141/69
[2017-08-10 16:14] LABS: TROP-I INTERPRETATION NEGATIVE; TROPONIN-I < 0.01 ng/mL (0.0-0.30)
[2017-08-10 21:03] VITALS: BP 139/67
[2017-08-11 00:20] VITALS: BP 154/85
[2017-08-11 05:11] VITALS: BP 152/75
[2017-08-11 05:43] LABS: TROP-I INTERPRETATION NEGATIVE; TROPONIN-I < 0.01 ng/mL (0.0-0.30)
[2017-08-11 08:15] VITALS: BP 156/89
[2017-08-11 11:30] VITALS: BP 143/76
[2017-08-11 16:03] VITALS: BP 153/72
[2017-08-11 21:33] VITALS: BP 146/75
[2017-08-12 00:45] VITALS: BP 135/82
[2017-08-12 01:24] LABS: APPEARANCE CLOUDY ((CLEAR)); BILIRUBIN NEGATIVE; BLOOD NEGATIVE; COLOR YELLOW ((YELLOW)); GLUCOSE (STRIP) NEGATIVE; KETONES NEGATIVE; LEUKOCYTES MODERATE; NITRITE POSITIVE; PROTEIN (STRIP) NEGATIVE; SPECIFIC GRAVITY 1.019 (1.000-1.030); UROBILINOGEN 0.2 MG/DL (0.2-1.0)
[2017-08-12 01:27] LABS: BACTERIA 3+ /HPF; EPITHELIAL CELLS RARE /HPF; MUCUS TRACE /LPF; RED BLOOD CELLS 0-5 /HPF (0-5); WHITE BLOOD CELLS TNTC /HPF (0-5)
[2017-08-12 04:02] VITALS: BP 149/67
[2017-08-12 05:14] LABS: HEMATOCRIT 34.8 % (36.0-46.0); HEMOGLOBIN 10.6 G/DL (11.9-15.5); MCH 24.9 PG (29.0-34.0); MCHC 30.5 G/DL (30.0-36.0); MCV 81.7 FL (83-99); PLATELET COUNT 431 K/uL (156-360); RBC DIS.WIDTH-CV 15.3 % (11.8-14.6); RBC DIS.WIDTH-SD 45.5 % (39-53); RED BLOOD COUNT 4.26 M/uL (3.80-5.20); WHITE BLOOD COUNT 5.9 K/uL (4.1-10.2)
[2017-08-12 05:41] LABS: ALBUMIN 3.5 G/DL (3.2-4.8); ALKALINE PHOSPHATASE 100 IU/L (3-129); ALT (GPT) 19 IU/L (3-49); AST (GOT) 18 IU/L (2-34); CHLORIDE 105 MEQ/L (99-109); CREATININE 0.8 MG/DL (0.6-1.3); GFR ESTIMATE (CALCULATED) > 59 mL/min/; GLUCOSE 85 mg/dL (70-99); POTASSIUM 3.8 MEQ/L (3.7-5.4); SODIUM 139 MEQ/L (136-147); TOTAL BILIRUBIN 0.2 MG/DL (0.0-1.0); TOTAL PROTEIN 6.6 G/DL (6.4-8.3); UREA NITROGEN (BUN) 20 mg/dL (9-23)
[2017-08-12 08:52] VITALS: BP 118/68
[2017-08-12 11:10] VITALS: BP 122/55
[2017-08-12 16:00] VITALS: BP 117/70
[2017-08-12 19:30] VITALS: BP 123/57
[2017-08-13] VITALS (9 sets, daily range): BP systolic 74–133; BP diastolic 48–78
[2017-08-13 10:42] LABS: HEMATOCRIT 34.3 % (36.0-46.0); HEMOGLOBIN 10.5 G/DL (11.9-15.5); MCH 25.3 PG (29.0-34.0); MCHC 30.6 G/DL (30.0-36.0); MCV 82.7 FL (83-99); PLATELET COUNT 373 K/uL (156-360); RBC DIS.WIDTH-CV 15.5 % (11.8-14.6); RBC DIS.WIDTH-SD 46.8 % (39-53); RED BLOOD COUNT 4.15 M/uL (3.80-5.20); WHITE BLOOD COUNT 5.9 K/uL (4.1-10.2)
[2017-08-14] VITALS (7 sets, daily range): BP systolic 129–178; BP diastolic 61–92
[2017-08-15 04:07] VITALS: BP 130/70
[2017-08-15 07:04] VITALS: BP 9/9
[2017-08-15 12:14] VITALS: BP 141/69
[2017-08-15] MEDS ORDERED: AMOX TR-K CLV1 EAC3 PO (13:05)
[2017-08-15] MEDS ORDERED: TAMSULOSIN HCL0.4 MG PO (13:05)
[2017-08-15] MEDS ORDERED: VENTOLIN HFA18 GM IH (13:05)
[2017-08-15] MEDS ORDERED: APRESOLINE25 MG PO (13:06)
[2017-08-15] MEDS ORDERED: TYLENOL REGULA325 MG PO (13:07)
[2017-08-15] MEDS ORDERED: ASPIR-LOW81 MG PO (13:07)
[2017-08-15] MEDS ORDERED: LOSARTAN POTASS50 MG PO (13:07)
[2017-08-15] MEDS ORDERED: DULERA 100 MCG/13 GM IH (13:08)
[2017-08-15] MEDS ORDERED: FAMOTIDINE20 MG PO (13:09)
== END 2017-08-15 15:07 | disposition home health service (06) | DRG 204 ==
LOC: EME → EDBD 04:08 → EME 04:08 → 4SOUTH 07:13 → EDOF 07:13 → ENRESERV 07:14 → 4SOUTH 07:55 → ENPENDDIS 08-15 → 4SOUTH 08-15 15:07
PROVIDERS: Emergency Medicine; Internal Medicine
DX: R07.1 Chest pain on breathing (principal); G89.4 Chronic pain syndrome; R33.9 Retention of urine, unspecified; R61 Generalized hyperhidrosis; F41.9 Anxiety disorder, unspecified; R00.0 Tachycardia, unspecified; J44.9 Chronic obstructive pulmonary disease, unspecified; I10 Essential (primary) hypertension; M79.7 Fibromyalgia; E78.5 Hyperlipidemia, unspecified; K29.70 Gastritis, unspecified, without bleeding; G89.29 Other chronic pain; E66.9 Obesity, unspecified; K58.9 Irritable bowel syndrome, unspecified; E86.0 Dehydration; F17.200 Nicotine dependence, unspecified, uncomplicated; Z87.440 Personal history of urinary (tract) infections; Z86.19 Personal history of other infectious and parasitic diseases; Z88.8 Allergy status to other drugs, medicaments and biological substances; Z91.041 Radiographic dye allergy status; Z79.82 Long term (current) use of aspirin; Z90.710 Acquired absence of both cervix and uterus; Z90.49 Acquired absence of other specified parts of digestive tract; Z68.32 Body mass index [BMI] 32.0-32.9, adult; Z86.73 Personal history of transient ischemic attack (TIA), and cerebral infarction without residual deficits; Z86.79 Personal history of other diseases of the circulatory system; Z95.1 Presence of aortocoronary bypass graft
CPT/HCPCS: 71045; 71046; 78582; 80053; 81003; 82550; 82553; 82948; 83605; 83690; 83880; 84484; 85027; 85379; 85610; 85730; 87040; 87086; 93005; 94640; 94640 76; 99202; 99281; 99285; A9540; A9567; G0378; J0744; J1644; J2543; J7030; J7040; J7050; Q0177; S0028

== ENCOUNTER 2017-08-20 01:42 | Inpatient (IN) | payer OTHER ==
[~2017-08-20] VITALS: Ht 160 cm; Wt 80.1 kg
[~2017-08-20 01:42] MED LIST changes: +AMOX TR-K CLV1 EAC3 PO; +ASPIR-LOW81 MG PO; +DULERA 100 MCG/13 GM IH; +FAMOTIDINE20 MG PO; +LISINOPRIL20 MG PO; +TAMSULOSIN HCL0.4 MG PO
[2017-08-20 02:19] LABS: BASOPHIL (%) 0.6 % (0-1); BASOPHIL COUNT 0.1 K/uL (0-0.1); EOSINOPHIL (%) 0.3 % (0-5); HEMATOCRIT 34.6 % (36.0-46.0); HEMOGLOBIN 10.8 G/DL (11.9-15.5); IMMATURE GRANULOCYTE (%) 0.3 % (0.0-0.7); LYMPHOCYTE (%) 4.6 % (15-42); LYMPHOCYTE COUNT 0.5 K/uL (1.0-2.8); MCH 25.3 PG (29.0-34.0); MCHC 31.2 G/DL (30.0-36.0); MONOCYTE (%) 2.7 % (3-12); MONOCYTE COUNT 0.3 K/uL (0-0.8); NEUTROPHIL (%) 91.5 % (45-76); NEUTROPHIL COUNT 9.5 K/uL (1.8-6.4); RBC DIS.WIDTH-CV 15.3 % (11.8-14.6); RBC DIS.WIDTH-SD 44.7 % (39-53); RED BLOOD COUNT 4.27 M/uL (3.80-5.20); WHITE BLOOD COUNT 10.4 K/uL (4.1-10.2)
[2017-08-20 02:27] LABS: ALBUMIN 3.6 g/dL (3.2-4.8); CHLORIDE 107 mEq/L (99-109); SODIUM 140 mEq/L (136-147)
[2017-08-20 02:29] LABS: GLUCOSE 132 mg/dL (70-99); TOTAL PROTEIN 6.2 g/dL (6.4-8.3)
[2017-08-20 02:31] LABS: TOTAL BILIRUBIN 0.5 mg/dL (0.0-1.0)
[2017-08-20 02:33] LABS: ALKALINE PHOSPHATASE 172 IU/L (3-129); CREATININE 0.9 mg/dL (0.6-1.3); GFR ESTIMATE (CALCULATED) > 59 mL/min/
[2017-08-20 02:34] LABS: UREA NITROGEN (BUN) 16 mg/dL (9-23)
[2017-08-20 02:35] LABS: AST (GOT) 735 IU/L (2-34)
[2017-08-20 02:36] LABS: ALT (GPT) 840 IU/L (3-49); LIPASE 14 U/L (1.0-51.0)
[2017-08-20 02:37] LABS: TROP-I INTERPRETATION NEGATIVE; TROPONIN-I < 0.01 ng/mL (0.0-0.30)
[2017-08-20 03:21] LABS: PLAT.SUFFICIENCY DECREASED
[2017-08-20 03:44] LABS: PLATELET COUNT 131 K/uL (156-360)
[2017-08-20 04:24] LABS: SALICYLATE < 5.0 MG/DL (15-30)
[2017-08-20 04:32] LABS: ACETAMINOPHEN (TYLENOL) 79 mcg/mL (10-30)
[2017-08-20 05:58] LABS: INTER. NORMALIZED RATIO 1.5
[2017-08-20 06:44] VITALS: BP 177/90
[2017-08-20 08:21] VITALS: BP 154/70
[2017-08-20] MEDS ORDERED: TYLENOL EXTRA500 MG PO (11:59)
[2017-08-20] MEDS ORDERED: DUONEB 2.5-0.5 M3 ML AEROSOL (11:59)
[2017-08-20] MEDS ORDERED: LISINOPRIL20 MG PO (12:00)
[2017-08-20 12:23] VITALS: BP 140/87
[2017-08-20 14:09] LABS: ALBUMIN 3.2 G/DL (3.2-4.8); DIRECT BILIRUBIN 0.2 mg/dL (0.0-0.3); TOTAL BILIRUBIN 0.5 MG/DL (0.0-1.0)
[2017-08-20 14:20] LABS: INTER. NORMALIZED RATIO 1.7
[2017-08-20 14:22] LABS: PTT 21.1 SEC (25-37)
[2017-08-20 15:03] LABS: ALKALINE PHOSPHATASE 141 IU/L (3-129); ALT (GPT) 761 IU/L (3-49); AST (GOT) 522 IU/L (2-34); GFR ESTIMATE (CALCULATED) > 59 mL/min/; TOTAL PROTEIN 5.6 G/DL (6.4-8.3); UREA NITROGEN (BUN) 16 mg/dL (9-23)
[2017-08-20 15:47] VITALS: BP 144/65
[2017-08-20 19:40] VITALS: BP 107/50
[2017-08-20 23:15] VITALS: BP 92/53
[2017-08-21 02:03] LABS: INTER. NORMALIZED RATIO 1.8
[2017-08-21 02:05] LABS: TOTAL PROTEIN 5.3 g/dL (6.4-8.3)
[2017-08-21 02:06] LABS: PTT 28.7 SEC (25-37)
[2017-08-21 02:07] LABS: TOTAL BILIRUBIN 0.4 mg/dL (0.0-1.0)
[2017-08-21 02:08] LABS: ALKALINE PHOSPHATASE 185 IU/L (3-129)
[2017-08-21 02:10] LABS: DIRECT BILIRUBIN 0.2 mg/dL (0.0-0.3)
[2017-08-21 02:11] LABS: ACETAMINOPHEN (TYLENOL) < 10 mcg/mL (10-30); ALT (GPT) 2044 IU/L (3-49); AST (GOT) 1738 IU/L (2-34)
[2017-08-21 04:25] VITALS: BP 94/51
[2017-08-21 07:52] VITALS: BP 96/52
[2017-08-21 08:13] LABS: HEMATOCRIT 35.2 % (36.0-46.0); MCH 24.7 PG (29.0-34.0); MCHC 31.3 G/DL (30.0-36.0); MCV 78.9 FL (83-99); RBC DIS.WIDTH-CV 15.4 % (11.8-14.6); RBC DIS.WIDTH-SD 44.1 % (39-53); RED BLOOD COUNT 4.46 M/uL (3.80-5.20); WHITE BLOOD COUNT 8.5 K/uL (4.1-10.2)
[2017-08-21 08:14] LABS: PLATELET COUNT 290 K/uL (156-360)
[2017-08-21 08:19] LABS: INTER. NORMALIZED RATIO 1.8
[2017-08-21 09:23] LABS: CHLORIDE 107 MEQ/L (99-109); DIRECT BILIRUBIN 0.1 mg/dL (0.0-0.3); POTASSIUM 3.9 MEQ/L (3.7-5.4); SODIUM 137 MEQ/L (136-147); TOTAL BILIRUBIN 0.5 MG/DL (0.0-1.0)
[2017-08-21 09:49] LABS: ALKALINE PHOSPHATASE 162 IU/L (3-129); CREATININE 0.9 MG/DL (0.6-1.3); GFR ESTIMATE (CALCULATED) > 59 mL/min/; LIPASE 38 U/L (1.0-51.0); TOTAL PROTEIN 5.4 G/DL (6.4-8.3); UREA NITROGEN (BUN) 17 mg/dL (9-23)
[2017-08-21 09:55] LABS: ALT (GPT) 2484 IU/L (3-49); AST (GOT) 1871 IU/L (2-34); GLUCOSE 98 mg/dL (70-99)
[2017-08-21 11:37] LABS: HEPATITIS B SURFACE ANTIGEN Nonreactive
[2017-08-21 11:38] LABS: ANTI-HEPATITIS A VIRUS (IGM) Nonreactive
[2017-08-21 11:39] LABS: ANTI-HEPATITIS B CORE (IGM) Nonreactive
[2017-08-21 12:04] VITALS: BP 96/51
[2017-08-21 12:41] LABS: HEMATOCRIT 29.1 % (36.0-46.0); HEMOGLOBIN 9.1 G/DL (11.9-15.5); MCH 24.9 PG (29.0-34.0); MCHC 31.3 G/DL (30.0-36.0); MCV 79.7 FL (83-99); PLATELET COUNT 279 K/uL (156-360); RBC DIS.WIDTH-CV 15.6 % (11.8-14.6); RBC DIS.WIDTH-SD 45.5 % (39-53); RED BLOOD COUNT 3.65 M/uL (3.80-5.20); WHITE BLOOD COUNT 7.9 K/uL (4.1-10.2)
[2017-08-21 13:20] LABS: ALBUMIN 2.7 G/DL (3.2-4.8); ALKALINE PHOSPHATASE 145 IU/L (3-129); DIRECT BILIRUBIN 0.2 mg/dL (0.0-0.3); LIPASE 36 U/L (1.0-51.0); TOTAL BILIRUBIN 0.5 MG/DL (0.0-1.0); TOTAL PROTEIN 4.9 G/DL (6.4-8.3)
[2017-08-21 13:22] LABS: ALT (GPT) 2599 IU/L (3-49); AST (GOT) 1720 IU/L (2-34)
[2017-08-21 16:13] VITALS: BP 112/54
[2017-08-21 19:07] LABS: HEMATOCRIT 29.1 % (36.0-46.0); HEMOGLOBIN 9.2 G/DL (11.9-15.5); MCH 25.3 PG (29.0-34.0); MCHC 31.6 G/DL (30.0-36.0); MCV 79.9 FL (83-99); PLATELET COUNT 269 K/uL (156-360); RBC DIS.WIDTH-CV 15.7 % (11.8-14.6); RBC DIS.WIDTH-SD 45.5 % (39-53); RED BLOOD COUNT 3.64 M/uL (3.80-5.20); WHITE BLOOD COUNT 6.2 K/uL (4.1-10.2)
[2017-08-21 19:30] LABS: ALBUMIN 2.7 G/DL (3.2-4.8); TOTAL BILIRUBIN 0.4 MG/DL (0.0-1.0)
[2017-08-21 19:38] LABS: ALKALINE PHOSPHATASE 149 IU/L (3-129); DIRECT BILIRUBIN 0.2 mg/dL (0.0-0.3); LIPASE 33 U/L (1.0-51.0)
[2017-08-21 19:46] LABS: ALT (GPT) 2510 IU/L (3-49); AST (GOT) 1268 IU/L (2-34)
[2017-08-21 19:50] VITALS: BP 112/53
[2017-08-21 20:04] LABS: INTER. NORMALIZED RATIO 1.7
[2017-08-21 20:07] LABS: PTT 27.5 SEC (25-37)
[2017-08-22] VITALS (7 sets, daily range): BP systolic 96–139; BP diastolic 48–71
[2017-08-22 06:54] LABS: BASOPHIL (%) 0.8 % (0-1); EOSINOPHIL (%) 3.6 % (0-5); EOSINOPHIL COUNT 0.2 K/uL (0-0.3); HEMATOCRIT 27.9 % (36.0-46.0); HEMOGLOBIN 8.8 G/DL (11.9-15.5); IMMATURE GRANULOCYTE (%) 0.4 % (0.0-0.7); LYMPHOCYTE (%) 9.9 % (15-42); LYMPHOCYTE COUNT 0.5 K/uL (1.0-2.8); MCHC 31.5 G/DL (30.0-36.0); MCV 79.3 FL (83-99); MONOCYTE (%) 5.3 % (3-12); MONOCYTE COUNT 0.3 K/uL (0-0.8); NEUTROPHIL COUNT 4.1 K/uL (1.8-6.4); PLATELET COUNT 283 K/uL (156-360); RBC DIS.WIDTH-CV 15.7 % (11.8-14.6); RBC DIS.WIDTH-SD 45.4 % (39-53); RED BLOOD COUNT 3.52 M/uL (3.80-5.20); WHITE BLOOD COUNT 5.1 K/uL (4.1-10.2)
[2017-08-22 07:57] LABS: INTER. NORMALIZED RATIO 1.4
[2017-08-22 08:00] LABS: PTT 25.6 SEC (25-37)
[2017-08-22 10:52] LABS: ALBUMIN 2.8 G/DL (3.2-4.8); ALKALINE PHOSPHATASE 159 IU/L (3-129); AST (GOT) 735 IU/L (2-34); CHLORIDE 109 MEQ/L (99-109); CREATININE 0.8 MG/DL (0.6-1.3); DIRECT BILIRUBIN 0.1 mg/dL (0.0-0.3); GFR ESTIMATE (CALCULATED) > 59 mL/min/; GLUCOSE 99 mg/dL (70-99); POTASSIUM 3.6 MEQ/L (3.7-5.4); SODIUM 141 MEQ/L (136-147); TOTAL PROTEIN 5.2 G/DL (6.4-8.3); UREA NITROGEN (BUN) 14 mg/dL (9-23)
[2017-08-22 10:53] LABS: ALT (GPT) 2326 IU/L (3-49); TOTAL BILIRUBIN 0.5 MG/DL (0.0-1.0)
[2017-08-22 18:11] LABS: HCV RNA (IU/mL) <15 IU/mL (())
[2017-08-23 06:44] LABS: HEMATOCRIT 27.4 % (36.0-46.0); HEMOGLOBIN 8.4 G/DL (11.9-15.5); MCH 24.7 PG (29.0-34.0); MCHC 30.7 G/DL (30.0-36.0); MCV 80.6 FL (83-99); PLATELET COUNT 284 K/uL (156-360); RBC DIS.WIDTH-CV 15.6 % (11.8-14.6); RBC DIS.WIDTH-SD 45.7 % (39-53); WHITE BLOOD COUNT 3.8 K/uL (4.1-10.2)
[2017-08-23 06:57] LABS: INTER. NORMALIZED RATIO 1.1
[2017-08-23 07:00] LABS: PTT 27.8 SEC (25-37)
[2017-08-23 07:22] LABS: ALBUMIN 2.6 G/DL (3.2-4.8); ALKALINE PHOSPHATASE 137 IU/L (3-129); CHLORIDE 112 MEQ/L (99-109); CREATININE 0.9 MG/DL (0.6-1.3); DIRECT BILIRUBIN 0.1 mg/dL (0.0-0.3); GFR ESTIMATE (CALCULATED) > 59 mL/min/; GLUCOSE 79 mg/dL (70-99); POTASSIUM 3.5 MEQ/L (3.7-5.4); SODIUM 144 MEQ/L (136-147); UREA NITROGEN (BUN) 12 mg/dL (9-23)
[2017-08-23 07:25] LABS: ALT (GPT) 1419 IU/L (3-49); AST (GOT) 219 IU/L (2-34); TOTAL BILIRUBIN 0.3 MG/DL (0.0-1.0)
[2017-08-23 07:34] LABS: HCV RNA (LOG IU/mL) <1.18 (())
[2017-08-23 08:06] VITALS: BP 155/73
[2017-08-23 15:50] VITALS: BP 127/80
[2017-08-23 19:36] VITALS: BP 181/77
[2017-08-24 00:10] VITALS: BP 128/63
[2017-08-24 00:40] LABS: APPEARANCE CLEAR ((CLEAR)); BILIRUBIN NEGATIVE; BLOOD NEGATIVE; COLOR YELLOW ((YELLOW)); GLUCOSE (STRIP) NEGATIVE; KETONES NEGATIVE; LEUKOCYTES NEGATIVE; NITRITE NEGATIVE; PROTEIN (STRIP) NEGATIVE; SPECIFIC GRAVITY 1.014 (1.000-1.030); UROBILINOGEN 0.2 MG/DL (0.2-1.0)
[2017-08-24 03:58] VITALS: BP 143/80
[2017-08-24 06:16] LABS: HEMATOCRIT 26.1 % (36.0-46.0); MCHC 30.7 G/DL (30.0-36.0); MCV 81.6 FL (83-99); PLATELET COUNT 281 K/uL (156-360); RBC DIS.WIDTH-CV 15.9 % (11.8-14.6); RBC DIS.WIDTH-SD 46.5 % (39-53); WHITE BLOOD COUNT 3.4 K/uL (4.1-10.2)
[2017-08-24 06:39] LABS: ALBUMIN 2.7 G/DL (3.2-4.8); ALKALINE PHOSPHATASE 110 IU/L (3-129); CHLORIDE 110 MEQ/L (99-109); CREATININE 0.7 MG/DL (0.6-1.3); GFR ESTIMATE (CALCULATED) > 59 mL/min/; POTASSIUM 3.2 MEQ/L (3.7-5.4); SODIUM 144 MEQ/L (136-147); TOTAL PROTEIN 4.9 G/DL (6.4-8.3); UREA NITROGEN (BUN) 12 mg/dL (9-23)
[2017-08-24 06:42] LABS: AST (GOT) 91 IU/L (2-34); GLUCOSE 100 mg/dL (70-99); TOTAL BILIRUBIN 0.2 MG/DL (0.0-1.0)
[2017-08-24 06:45] LABS: PTT 27.7 SEC (25-37)
[2017-08-24 06:52] LABS: ALT (GPT) 995 IU/L (3-49)
[2017-08-24 08:00] VITALS: BP 113/58
[2017-08-24 13:01] VITALS: BP 128/62
[2017-08-24 16:14] VITALS: BP 129/58
[2017-08-24 20:05] VITALS: BP 135/59
[2017-08-25] VITALS (16 sets, daily range): BP systolic 121–164; BP diastolic 59–81
[2017-08-25 08:29] LABS: HEMATOCRIT 25.4 % (36.0-46.0); HEMOGLOBIN 7.8 G/DL (11.9-15.5); MCH 25.4 PG (29.0-34.0); MCHC 30.7 G/DL (30.0-36.0); MCV 82.7 FL (83-99); PLATELET COUNT 293 K/uL (156-360); RBC DIS.WIDTH-CV 16.4 % (11.8-14.6); RBC DIS.WIDTH-SD 48.4 % (39-53); RED BLOOD COUNT 3.07 M/uL (3.80-5.20); WHITE BLOOD COUNT 3.4 K/uL (4.1-10.2)
[2017-08-25 09:04] LABS: ALBUMIN 2.8 G/DL (3.2-4.8); ALKALINE PHOSPHATASE 108 IU/L (3-129); ALT (GPT) 691 IU/L (3-49); AST (GOT) 51 IU/L (2-34); CHLORIDE 111 MEQ/L (99-109); CREATININE 0.6 MG/DL (0.6-1.3); GFR ESTIMATE (CALCULATED) > 59 mL/min/; GLUCOSE 86 mg/dL (70-99); POTASSIUM 3.2 MEQ/L (3.7-5.4); SODIUM 145 MEQ/L (136-147); TOTAL PROTEIN 5.1 G/DL (6.4-8.3); UREA NITROGEN (BUN) 12 mg/dL (9-23)
[2017-08-25 09:07] LABS: TOTAL BILIRUBIN 0.3 MG/DL (0.0-1.0)
[2017-08-26 03:52] VITALS: BP 172/86
[2017-08-26 06:51] LABS: HEMATOCRIT 34.7 % (36.0-46.0); MCH 25.1 PG (29.0-34.0); MCHC 31.1 G/DL (30.0-36.0); MCV 80.7 FL (83-99); PLATELET COUNT 311 K/uL (156-360); RBC DIS.WIDTH-SD 46.3 % (39-53); WHITE BLOOD COUNT 8.1 K/uL (4.1-10.2)
[2017-08-26 06:56] LABS: HEMOGLOBIN 10.8 G/DL (11.9-15.5)
[2017-08-26 07:13] LABS: ALBUMIN 3.2 G/DL (3.2-4.8); ALKALINE PHOSPHATASE 131 IU/L (3-129); ALT (GPT) 528 IU/L (3-49); AST (GOT) 36 IU/L (2-34); DIRECT BILIRUBIN 0.1 mg/dL (0.0-0.3)
[2017-08-26 07:14] LABS: TOTAL BILIRUBIN 0.4 MG/DL (0.0-1.0)
[2017-08-26 07:33] VITALS: BP 172/86
[2017-08-26 11:55] VITALS: BP 152/67
[2017-08-26 16:27] VITALS: BP 136/82
[2017-08-26 20:25] VITALS: BP 175/87
[2017-08-26 23:22] VITALS: BP 117/81
[2017-08-27 06:28] LABS: HEMATOCRIT 35.3 % (36.0-46.0); HEMOGLOBIN 10.7 G/DL (11.9-15.5); MCH 24.8 PG (29.0-34.0); MCHC 30.3 G/DL (30.0-36.0); MCV 81.7 FL (83-99); PLATELET COUNT 282 K/uL (156-360); RBC DIS.WIDTH-CV 15.9 % (11.8-14.6); RBC DIS.WIDTH-SD 46.6 % (39-53); RED BLOOD COUNT 4.32 M/uL (3.80-5.20); WHITE BLOOD COUNT 5.8 K/uL (4.1-10.2)
[2017-08-27 07:08] LABS: ALBUMIN 3.3 G/DL (3.2-4.8); ALKALINE PHOSPHATASE 126 IU/L (3-129); ALT (GPT) 383 IU/L (3-49); AST (GOT) 30 IU/L (2-34); DIRECT BILIRUBIN 0.1 mg/dL (0.0-0.3); TOTAL PROTEIN 6.2 G/DL (6.4-8.3)
[2017-08-27 07:09] LABS: TOTAL BILIRUBIN 0.3 MG/DL (0.0-1.0)
[2017-08-27 08:56] VITALS: BP 157/71
[2017-08-27 11:03] VITALS: BP 154/69
[2017-08-27 16:07] VITALS: BP 170/80
[2017-08-27 20:37] VITALS: BP 158/72
[2017-08-27 23:58] VITALS: BP 170/72
[2017-08-28 04:17] VITALS: BP 170/70
[2017-08-28 07:03] LABS: HEMOGLOBIN 9.5 G/DL (11.9-15.5); MCHC 30.6 G/DL (30.0-36.0); MCV 81.6 FL (83-99); RBC DIS.WIDTH-CV 16.1 % (11.8-14.6); RBC DIS.WIDTH-SD 47.1 % (39-53); WHITE BLOOD COUNT 13.8 K/uL (4.1-10.2)
[2017-08-28 07:08] LABS: PLATELET COUNT 400 K/uL (156-360)
[2017-08-28 07:29] LABS: ALBUMIN 3.2 G/DL (3.2-4.8); ALKALINE PHOSPHATASE 111 IU/L (3-129); ALT (GPT) 294 IU/L (3-49); AST (GOT) 42 IU/L (2-34); DIRECT BILIRUBIN 0.1 mg/dL (0.0-0.3); TOTAL BILIRUBIN 0.3 MG/DL (0.0-1.0); TOTAL PROTEIN 5.9 G/DL (6.4-8.3)
[2017-08-28 08:15] VITALS: BP 176/60
[2017-08-28 11:16] VITALS: BP 136/71
[2017-08-28 16:38] VITALS: BP 172/83
[2017-08-28 19:44] VITALS: BP 180/80
[2017-08-28 23:25] VITALS: BP 181/87
[2017-08-29 03:40] VITALS: BP 178/95
[2017-08-29 08:16] VITALS: BP 193/91
[2017-08-29 11:05] VITALS: BP 160/78
[2017-08-29 15:19] VITALS: BP 164/72
[2017-08-29 20:03] VITALS: BP 164/71
[2017-08-29 23:50] VITALS: BP 165/98
[2017-08-30 00:10] VITALS: BP 154/78
[2017-08-30 04:36] VITALS: BP 149/98
[2017-08-30 06:00] LABS: HEMATOCRIT 29.9 % (36.0-46.0); MCH 24.8 PG (29.0-34.0); MCHC 30.1 G/DL (30.0-36.0); MCV 82.4 FL (83-99); PLATELET COUNT 387 K/uL (156-360); RBC DIS.WIDTH-CV 16.1 % (11.8-14.6); RED BLOOD COUNT 3.63 M/uL (3.80-5.20); WHITE BLOOD COUNT 9.4 K/uL (4.1-10.2)
[2017-08-30 06:47] LABS: ALBUMIN 3.2 G/DL (3.2-4.8); ALKALINE PHOSPHATASE 124 IU/L (3-129); ALT (GPT) 181 IU/L (3-49); AST (GOT) 26 IU/L (2-34); DIRECT BILIRUBIN 0.1 mg/dL (0.0-0.3); TOTAL BILIRUBIN 0.3 MG/DL (0.0-1.0); TOTAL PROTEIN 5.8 G/DL (6.4-8.3)
[2017-08-30 07:56] VITALS: BP 184/92
[2017-08-30 11:28] VITALS: BP 162/76
[2017-08-30 15:40] VITALS: BP 171/78
[2017-08-30 20:33] VITALS: BP 145/76
[2017-08-31] VITALS (7 sets, daily range): BP systolic 143–185; BP diastolic 62–94
[2017-08-31 06:12] LABS: HEMATOCRIT 31.1 % (36.0-46.0); HEMOGLOBIN 9.1 G/DL (11.9-15.5); MCH 24.5 PG (29.0-34.0); MCHC 29.3 G/DL (30.0-36.0); MCV 83.6 FL (83-99); PLATELET COUNT 396 K/uL (156-360); RBC DIS.WIDTH-CV 15.9 % (11.8-14.6); RED BLOOD COUNT 3.72 M/uL (3.80-5.20); WHITE BLOOD COUNT 10.7 K/uL (4.1-10.2)
[2017-08-31 06:44] LABS: ALKALINE PHOSPHATASE 106 IU/L (3-129); ALT (GPT) 147 IU/L (3-49); AST (GOT) 17 IU/L (2-34); CHLORIDE 106 MEQ/L (99-109); CREATININE 0.8 MG/DL (0.6-1.3); GFR ESTIMATE (CALCULATED) > 59 mL/min/; GLUCOSE 109 mg/dL (70-99); POTASSIUM 4.8 MEQ/L (3.7-5.4); SODIUM 142 MEQ/L (136-147); TOTAL BILIRUBIN 0.3 MG/DL (0.0-1.0); TOTAL PROTEIN 5.3 G/DL (6.4-8.3); UREA NITROGEN (BUN) 30 mg/dL (9-23)
[2017-09-01 03:43] VITALS: BP 174/85
[2017-09-01 07:29] VITALS: BP 142/83
[2017-09-01 17:07] VITALS: BP 160/72
[2017-09-01 19:10] VITALS: BP 139/70
[2017-09-01 23:29] VITALS: BP 135/65
[2017-09-01 23:34] VITALS: BP 158/83
[2017-09-02 04:37] VITALS: BP 192/92
[2017-09-02 07:07] LABS: HEMATOCRIT 32.9 % (36.0-46.0); HEMOGLOBIN 9.8 G/DL (11.9-15.5); MCH 24.6 PG (29.0-34.0); MCHC 29.8 G/DL (30.0-36.0); MCV 82.5 FL (83-99); PLATELET COUNT 395 K/uL (156-360); RBC DIS.WIDTH-CV 15.7 % (11.8-14.6); RBC DIS.WIDTH-SD 46.7 % (39-53); RED BLOOD COUNT 3.99 M/uL (3.80-5.20); WHITE BLOOD COUNT 9.9 K/uL (4.1-10.2)
[2017-09-02 07:37] LABS: CHLORIDE 100 MEQ/L (99-109); CREATININE 0.8 MG/DL (0.6-1.3); GFR ESTIMATE (CALCULATED) > 59 mL/min/; GLUCOSE 83 mg/dL (70-99); POTASSIUM 5.2 MEQ/L (3.7-5.4); SODIUM 141 MEQ/L (136-147); UREA NITROGEN (BUN) 27 mg/dL (9-23)
[2017-09-02 09:09] VITALS: BP 144/70
[2017-09-02 13:33] VITALS: BP 116/58
[2017-09-02 15:30] VITALS: BP 140/74
[2017-09-02 19:49] VITALS: BP 161/82
[2017-09-02 23:37] VITALS: BP 162/82
[2017-09-03 04:15] VITALS: BP 160/87
[2017-09-03 07:02] LABS: HEMATOCRIT 31.9 % (36.0-46.0); HEMOGLOBIN 9.6 G/DL (11.9-15.5); MCH 24.6 PG (29.0-34.0); MCHC 30.1 G/DL (30.0-36.0); MCV 81.6 FL (83-99); PLATELET COUNT 400 K/uL (156-360); RBC DIS.WIDTH-CV 15.6 % (11.8-14.6); RBC DIS.WIDTH-SD 45.5 % (39-53); RED BLOOD COUNT 3.91 M/uL (3.80-5.20); WHITE BLOOD COUNT 9.1 K/uL (4.1-10.2)
[2017-09-03 07:27] LABS: CHLORIDE 99 MEQ/L (99-109); CREATININE 0.7 MG/DL (0.6-1.3); GFR ESTIMATE (CALCULATED) > 59 mL/min/; GLUCOSE 89 mg/dL (70-99); POTASSIUM 4.9 MEQ/L (3.7-5.4); SODIUM 139 MEQ/L (136-147); UREA NITROGEN (BUN) 26 mg/dL (9-23)
[2017-09-03 07:46] VITALS: BP 190/88
[2017-09-03 12:15] VITALS: BP 100/49
[2017-09-03 16:17] VITALS: BP 152/69
[2017-09-03 17:07] LABS: CATU Urine Volume 1200 mL/24 h (()); Calculated Total (E and NE) 52 mcg/24 h (26-121); Dopamine, 24 hr Urine 194 mcg/24 h (52-480); Epinephrine, 24 hr Urine 3 mcg/24 h (2-24); Norepinephrine, 24 hr Ur 49 mcg/24 h (15-100)
[2017-09-03 18:59] VITALS: BP 136/65
[2017-09-03 23:44] VITALS: BP 180/98
[2017-09-04] VITALS (7 sets, daily range): BP systolic 118–196; BP diastolic 54–88
[2017-09-04 16:00] LABS: MNPH Specimen Volume 1200 mL (())
[2017-09-05] VITALS (8 sets, daily range): BP systolic 103–187; BP diastolic 53–80
[2017-09-06 04:37] VITALS: BP 193/86
[2017-09-06 05:28] LABS: HEMATOCRIT 33.3 % (36.0-46.0); MCH 24.3 PG (29.0-34.0); MCV 80.8 FL (83-99); PLATELET COUNT 371 K/uL (156-360); RBC DIS.WIDTH-CV 15.6 % (11.8-14.6); RBC DIS.WIDTH-SD 45.2 % (39-53); RED BLOOD COUNT 4.12 M/uL (3.80-5.20); WHITE BLOOD COUNT 11.2 K/uL (4.1-10.2)
[2017-09-06 06:15] LABS: CHLORIDE 103 MEQ/L (99-109); CREATININE 0.8 MG/DL (0.6-1.3); GFR ESTIMATE (CALCULATED) > 59 mL/min/; GLUCOSE 83 mg/dL (70-99); POTASSIUM 4.5 MEQ/L (3.7-5.4); SODIUM 141 MEQ/L (136-147); UREA NITROGEN (BUN) 22 mg/dL (9-23)
[2017-09-06 07:44] VITALS: BP 144/58
[2017-09-06 11:46] VITALS: BP 106/54
[2017-09-06 15:25] LABS: BASOPHIL (%) 0.1 % (0-1); EOSINOPHIL (%) 0.2 % (0-5); HEMATOCRIT 32.6 % (36.0-46.0); HEMOGLOBIN 9.9 G/DL (11.9-15.5); IMMATURE GRANULOCYTE (%) 2.2 % (0.0-0.7); LYMPHOCYTE (%) 2.9 % (15-42); LYMPHOCYTE COUNT 0.3 K/uL (1.0-2.8); MCH 24.5 PG (29.0-34.0); MCHC 30.4 G/DL (30.0-36.0); MCV 80.7 FL (83-99); MONOCYTE (%) 5.3 % (3-12); MONOCYTE COUNT 0.6 K/uL (0-0.8); NEUTROPHIL (%) 89.3 % (45-76); NEUTROPHIL COUNT 10.4 K/uL (1.8-6.4); PLATELET COUNT 371 K/uL (156-360); RBC DIS.WIDTH-CV 15.9 % (11.8-14.6); RBC DIS.WIDTH-SD 45.7 % (39-53); RED BLOOD COUNT 4.04 M/uL (3.80-5.20); WHITE BLOOD COUNT 11.6 K/uL (4.1-10.2)
[2017-09-06] MEDS ORDERED: NICOTINE PATCH1 EAC1 TD (16:33)
[2017-09-06] MEDS ORDERED: APRESOLINE25 MG PO (16:34)
[2017-09-06] MEDS ORDERED: ASPIR-LOW81 MG PO (16:35)
[2017-09-06] MEDS ORDERED: NADOLOL40 MG PO (16:35)
[2017-09-06] MEDS ORDERED: BUSPAR10 MG PO (16:36)
[2017-09-06] MEDS ORDERED: PANTOPRAZOLE SO40 MG PO (16:38)
[2017-09-06] MEDS ORDERED: DOCUSATE SODIU100 MG PO (16:38)
[2017-09-06] MEDS ORDERED: PREDNISONE20 MG PO (16:39)
[2017-09-06] MEDS ORDERED: Chronulac,Cephulac,E PO (16:39)
[2017-09-06 16:45] VITALS: BP 102/55
[2017-09-06 19:43] VITALS: BP 119/58
[2017-09-06 23:31] VITALS: BP 169/74
[2017-09-07 03:33] VITALS: BP 157/74
[2017-09-07 08:19] VITALS: BP 137/64
[2017-09-07 12:16] VITALS: BP 109/56
[2017-09-07] MEDS ORDERED: MIRTAZAPINE30 MG PO (13:46)
== END 2017-09-07 15:38 | DRG 917 ==
LOC: EME → EDBD 01:42 → 3EAST 04:10 → EDOF 04:10 → ENRESERV 04:15 → 3EAST 06:23
PROVIDERS: Emergency Medicine; Family Medicine; Internal Medicine; Internal Medicine Gastroenterology
PROC: 30233N1 Transfusion of Nonautologous Red Blood Cells into Peripheral Vein, Percutaneous Approach (ICD-10-PCS; principal; 2017-08-25)
DX: T39.1X1A Poisoning by 4-Aminophenol derivatives, accidental (unintentional), initial encounter (principal); K72.00 Acute and subacute hepatic failure without coma; I11.0 Hypertensive heart disease with heart failure; I50.9 Heart failure, unspecified; D68.9 Coagulation defect, unspecified; Z99.81 Dependence on supplemental oxygen; J44.1 Chronic obstructive pulmonary disease with (acute) exacerbation; D64.9 Anemia, unspecified; F17.210 Nicotine dependence, cigarettes, uncomplicated; Z86.73 Personal history of transient ischemic attack (TIA), and cerebral infarction without residual deficits; E78.5 Hyperlipidemia, unspecified; Z87.440 Personal history of urinary (tract) infections; K21.9 Gastro-esophageal reflux disease without esophagitis; K64.9 Unspecified hemorrhoids; F41.8 Other specified anxiety disorders; R11.2 Nausea with vomiting, unspecified; G89.29 Other chronic pain; R33.9 Retention of urine, unspecified; F41.1 Generalized anxiety disorder; I71.4 Abdominal aortic aneurysm, without rupture; R00.0 Tachycardia, unspecified; F19.939 Other psychoactive substance use, unspecified with withdrawal, unspecified; N95.1 Menopausal and female climacteric states; R51 Headache; K58.1 Irritable bowel syndrome with constipation; K75.89 Other specified inflammatory liver diseases
CPT/HCPCS: 71046; 74019; 74176; 80048; 80053; 80076; 81003; 82248; 82272; 82374; 82384 90; 82565; 83516 90; 83690; 83835 90; 84484; 84520; 85025; 85025 91; 85027; 85610; 85730; 86038; 86235; 86256 90; 86705; 86709; 86850; 86870; 86900; 86901; 86905; 86920; 87086; 87340; 87522 90; 93005; 94640; 94640 76; 94760; 94799; 97530 GO; 97530 GP; 99202; 99281; 99285; C1753; G0480; J0132; J0692; J0696; J1644; J1940; J2405; J2765; J2930; J7030; J7040; J7042; J7060; J7070; J7512; P9016